=== PATIENT | male | born 2000 | race Caucasian/White ===

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

== ENCOUNTER → 2023-04-25 14:18 | Outpatient (BNVA) | payer MEDICAID, SELFPAY | PROVIDERS: Family Provider Nurse Practitioner; Visit Provider Dermatology | DX: L73.8 Other specified follicular disorders (principal); D22.39 Melanocytic nevi of other parts of face | CPT/HCPCS: 99203 ==